=== PATIENT | female | born 1960 | race Caucasian/White ===

== ENCOUNTER 2020-05-08 11:44 | Outpatient (REF) | payer OTHER, SELFPAY ==
[2020-05-08 12:20] LABS: COVID-19 Test Negative (Negative)
== END 2020-05-08 11:45 | disposition home or self-care (01) ==
LOC: HO.LAB 11:44
PROVIDERS: Visit Provider Internal Medicine
DX: Z20.828 Contact with and (suspected) exposure to other viral communicable diseases (principal)
CPT/HCPCS: 87635

== ENCOUNTER 2020-07-08 09:16 | Outpatient (REF) | payer OTHER, SELFPAY ==
[2020-07-08 10:35] LABS: COVID-19 Test Negative (Negative); IDNOW Serial# 55D5AD1C
[2020-08-17 10:50] LABS: SARS-COV-2 PCR UMBRL NEGATIVE
[2020-09-17 09:03] LABS: SARS-COV-2 PCR UMBRL NEGATIVE
[2020-10-04 09:00] LABS: SARS-COV-2 PCR UMBRL NEGATIVE
== END 2020-07-08 09:17 | disposition home or self-care (01) ==
LOC: HO.EMPCOV 09:16
PROVIDERS: Visit Provider Internal Medicine
DX: Z20.828 Contact with and (suspected) exposure to other viral communicable diseases (principal)
CPT/HCPCS: 36415; 87635; C9803; U0003

== ENCOUNTER → 2022-05-06 13:13 | Outpatient (RCR) | payer OTHER, SELFPAY ==
[2020-07-09 09:01] LABS: SARS-COV-2 PCR UMBRL Not Detected
[2020-08-03 09:57] LABS: SARS-COV-2 PCR UMBRL NEGATIVE
== END | disposition home or self-care (01) ==
LOC: HO.EMPCOV 06-26 11:52
PROVIDERS: Visit Provider Internal Medicine
DX: Z20.828 Contact with and (suspected) exposure to other viral communicable diseases (principal)
CPT/HCPCS: 36415; U0003